=== PATIENT | male | born 1955 | race African-American/Black ===

== ENCOUNTER 2016-12-13 18:08 | Emergency (ER) | payer OTHER, MEDICARE ==
[~2016-12-13] VITALS: Ht 177.8 cm; Wt 104.8 kg
[~2016-12-13 18:08] MED LIST: B-12100T2 OR; ECASA PO; LISI-363 PO; LORTA5 PO; MULTTAB23 PO; SIMV20 PO
[2016-12-13 18:16] VITALS: BP 135/94; PULSE 73; RESP 16; TEMP 98.5; O2SAT 96
[2016-12-13] MEDS ORDERED: ASPI325T PO (18:30)
[2016-12-13] MEDS ORDERED: TETANUS/DIPHTHERIA TOXOID ADULT 0.5 ML VIAL IM ONE (18:30)
[2016-12-13] MEDS ORDERED: prostate med (18:30)
[2016-12-13] MEDS ORDERED: MOBI7.5T PO (18:30)
[2016-12-13] MEDS ORDERED: LISI-515 PO (18:30)
[2016-12-13] MEDS ORDERED: CYAN100016 PO (18:30)
[2016-12-13] MEDS ORDERED: ZOCO20TA PO (18:30)
[2016-12-13] MEDS ORDERED: TYLETAB34 PO (18:30)
[2016-12-13] MEDS ORDERED: AUGM875T PO (18:31)
--- NOTE | 2016-12-13 18:31 | PD ---
HPI Chief Complaint: Bite or Sting Time Seen by Provider: 18:28 Travel History International Travel<30 days: No Contact w/Intl Traveler<30days: No Traveled to known affect area: No History of Present Illness HPI 61-year-old male presents to the emergency department for evaluation of dog bite wound to abdomen that occurred about 2 hours ago. Patient states that he was talking to his neighbor when his neighbor's dog somehow got out of the fence and ran toward him. States he pulled back just as the dog jumped to bite him and it only caused a small bite wound to his right lower abdomen. States his neighbor reported that the dog was uptodate on its rabies vaccination. States the dog was acting normally. He denies any fever, chills, pain. Patient states he needs his tetanus vaccination updated. PFSH Past Medical History Blood Disorders: No Cancer: No Cardiovascular Problems: Yes High Cholesterol: Yes Cerebrovascular Accident: Yes (STROKE 2004; 2 TIA'S 2009) Endocrine: No Glaucoma: Yes Genitourinary: No Hypertension: Yes Immune Disorder: No Musculoskeletal: No Neurologic: Yes (TIA) Psychiatric: No Reproductive: No Respiratory: No Renal Failure: Yes Past Surgical History Other Surgery: Yes Social History Alcohol Use: No Tobacco Use: No Substance Use: No Allergies-Medications (Allergen,Severity, Reaction): Coded Allergies: No Known Allergies (Verified , 12/13/16) Reported Meds & Prescriptions Reported Meds & Active Scripts Active Augmentin (Amoxicillin-Clavulanate) 875-125 mg Tab 875 Mg PO BID 10 Days Reported Mobic (Meloxicam) 7.5 Mg Tab 7.5 Mg PO DAILY [prostate med] Tylenol-Codeine #3 (Acetaminophen-Codeine) 300-30 mg Tab 1-2 Tab PO Q6H PRN Zocor (Simvastatin) 20 Mg Tab 20 Mg PO DAILY Lisinopril 20 Mg Tab 20 Mg PO DAILY B-12 Er (Cyanocobalamin) 1,000 Mcg Tab 1,000 Mcg PO DAILY Aspirin 325 Mg Tab 325 Mg PO DAILY Review of Systems Except as stated in HPI: all other systems reviewed are Neg Physical Exam Narrative GENERAL: Well-nourished and well-developed pleasant patient in no acute distress who is nontoxic appearing. SKIN: Warm and dry. HEAD: Normocephalic and atraumatic. EYES: No injection, drainage, or hyphema noted. PERRLA. EOMI. ENT: No nasal drainage noted. Oropharynx is clear. NECK: Supple and the trachea is midline. CARDIOVASCULAR: Regular rate and rhythm. RESPIRATORY: Breath sounds are equal bilaterally with no accessory muscle use, wheezing, rhonchi, or crackles. GASTROINTESTINAL: 3 abrasions to right lower abdomen with mild swelling. Abdomen is soft, non-tender, and nondistended. MUSCULOSKELETAL: No obvious deformities, swelling, cyanosis, or ecchymosis is present throughout the upper and lower extremities. Patient has full range of motion without any signs of neurovascular compromise. NEUROLOGICAL: Awake, alert, and oriented. Normal speech and gait. Cranial nerves are grossly intact. Data Data Last Documented VS Vital Signs Date Time Temp Pulse Resp B/P Pulse Ox O2 Delivery O2 Flow Rate FiO2 12/13/16 18:16 98.5 73 16 135/94 96 Orders Tetanus/Diphtheria Tox Adult (Tetanus/Di (12/13/16 18:30) MDM Medical Decision Making Medical Screen Exam Complete: Yes Emergency Medical Condition: Yes Differential Diagnosis Dog bite wound versus abrasion versus superficial laceration Narrative Course 61-year-old male presents to the emergency department for evaluation of dog bite wound to the lower abdomen. Patient is afebrile, vital signs are stable. These are minor abrasions, no significant laceration or wound. The dog is a neighbor's dog and is up-to-date on its vaccinations. I discussed the patient that I do not recommend rabies prophylaxis at this time. Tetanus vaccination updated. He'll be started on Augmentin. Instructed to follow-up with his PCP. Patient verbalizes understanding and agreement with treatment plan. Diagnosis Primary Impression: Dog bite Qualified Code: W54.0XXA - Dog bite, initial encounter Referrals: Primary Care Physician Patient Instructions: Animal Bite (ED), General Instructions Additional Instructions: Keep area clean and dry. Take medication as prescribed with food and a full glass of water. Follow-up with your Primary Care Physician. Return to the ED for any acute worsening of symptoms. Med/Other Pt SpecificInfo: Prescription(s) given Scripts Amoxicillin-Clavulanate (Augmentin)875-125 mg Atk639 Mg PO BID 10 Days Ref 0 Prov:Sam Richards MD 12/13/16 Disposition: 01 DISCHARGE HOME Condition: Stable Flower Jasso December 13, 2016 18:31
== END 2016-12-13 18:46 | disposition home or self-care (01) ==
LOC: PHEFT 18:08
DX: S30.811A Abrasion of abdominal wall, initial encounter (principal); Z23 Encounter for immunization; H40.9 Unspecified glaucoma; I10 Essential (primary) hypertension; Z86.73 Personal history of transient ischemic attack (TIA), and cerebral infarction without residual deficits; W54.0XXA Bitten by dog, initial encounter; Y93.89 Activity, other specified; Y92.89 Other specified places as the place of occurrence of the external cause; Y99.9 Unspecified external cause status
CPT/HCPCS: 90471; 90714

== ENCOUNTER 2017-08-02 11:10 | Observation (INO) | payer OTHER, MEDICARE ==
[~2017-08-02] VITALS: Ht 177.8 cm; Wt 105.0 kg
[2017-08-02] VITALS (9 sets, daily range): BP systolic 130–160; BP diastolic 78–95; PULSE 61–78; RESP 15–20; TEMP 95.6–98.1; O2SAT 97–98
[~2017-08-02 11:10] MED LIST changes: +ASPI-183 PO; +AUGM875T PO; -B-12100T2 OR; +CYAN100016 PO; -ECASA PO; -LISI-363 PO; +LISI-515 PO; -LORTA5 PO; +MOBI7.5T PO; -MULTTAB23 PO; -SIMV20 PO; +TYLETAB34 PO; +ZOCO20TA PO; +prostate med
[2017-08-02 12:18] LABS: AUTOMATED NEUTROPHIL # 2.5 TH/MM3 (1.8-7.7); BASOPHIL % 0.6 % (0.0-2.0); EOSINOPHIL # 0.1 TH/MM3 (0-0.4); EOSINOPHIL % 1.4 % (0.0-4.0); HEMATOCRIT 41.4 % (39.0-51.0); HEMOGLOBIN 13.8 GM/DL (13.0-17.0); LYMPH % 27.2 % (9.0-44.0); LYMPHOCYTE # 1.3 TH/MM3 (1.0-4.8); MEAN CELL VOLUME 86.4 FL (80.0-100.0); MEAN CORPUSCULAR HEMOGLOBIN 28.8 PG (27.0-34.0); MEAN CORPUSCULAR HGB CONC 33.3 % (32.0-36.0); MEAN PLATELET VOLUME 8.3 FL (7.0-11.0); MONO % 15.6 % (0.0-8.0); MONOCYTE # 0.7 TH/MM3 (0-0.9); NEUT % 55.2 % (16.0-70.0); PLATELET COUNT 200 TH/MM3 (150-450); RED BLOOD COUNT 4.79 MIL/MM3 (4.50-5.90); WHITE BLOOD COUNT 4.6 TH/MM3 (4.0-11.0)
[2017-08-02 12:28] LABS: INTERNATIONAL NORMALIZED RATIO 1.1 RATIO; PROTHROMBIN TIME - PATIENT 10.8 SEC (9.8-11.6)
[2017-08-02 12:44] LABS: ALBUMIN 3.7 GM/DL (3.4-5.0); ALT (GPT) 41 U/L (12-78); AST (GOT) 26 U/L (15-37); BICARBONATE 28.1 MEQ/L (21.0-32.0); BLOOD UREA NITROGEN 17 MG/DL (7-18); CALCIUM 9.5 MG/DL (8.5-10.1); CHLORIDE 106 MEQ/L (98-107); CREATININE 1.46 MG/DL (0.60-1.30); GLOMERULAR FILTRATION RATE 59 ML/MIN (>89); GLUCOSE,RANDOM 86 MG/DL (74-106); LIPASE 246 U/L (73-393); SODIUM (NA) 139 MEQ/L (136-145)
--- NOTE | 2017-08-02 12:48 | RADRPT ---
EXAM DATE/TIME: 08/02/2017 12:05 [facility] COMPARISON: No previous studies available for comparison. INDICATIONS : Chest pain. MEDICAL HISTORY : Hypertension. Stroke. Renal failure. SURGICAL HISTORY : Rotator cuff repair. ENCOUNTER: Initial ACUITY: 1 day PAIN SCORE: 2/10 LOCATION: chest midline. FINDINGS: A single view of the chest demonstrates the lungs to be symmetrically aerated without evidence of mas s, infiltrate or effusion. Minimal basal atelectasis and scarring The cardiomediastinal contours are unremarkable except tortuous aorta. Osseous structures are intact. CONCLUSION: 1. No consolidation or effusion. Minimal basal atelectasis or scarring. Dusty Barrios MD on August 02, 2017 at 12:46 Board Certified Radiologist. This report was verified electronically.
[2017-08-02 13:04] LABS: ALKALINE PHOSPHATASE 55 U/L (45-117); TOTAL BILIRUBIN ADULT 0.5 MG/DL (0.2-1.0); TROPONIN I 0.02 NG/ML (0.02-0.05)
--- NOTE | 2017-08-02 13:04 | PD ---
HPI Chief Complaint: Cardiac Complaint Time Seen by Provider: 11:39 Travel History International Travel<30 days: No Contact w/Intl Traveler<30days: No Traveled to known affect area: No History of Present Illness HPI 62-year-old male complains of chest pain. Patient states that he has indigestion feeling around the epigastric area with radiation to substernal area 3 days ago. Patient states that he went to his casket upholsterer office this morning and was advised to go the ED for evaluation. Patient was told by his casket upholsterer that he has some EKG changes this morning. Patient states that the chest pain resolved completely after the ride to the emergency room. Patient states the pain is epigastric and substernal pressure. Patient denies any pain radiation. Patient denies palpitation nausea diaphoresis. Patient states that the pain does not change with exertion. Patient has history hypertension and hyperlipidemia. Patient was on simvastatin. Patient states that he ran out of simvastatin a month ago and started back on since yesterday. EMS was called. Patient was given aspirin 162 mg by mouth and nitroglycerin 3 sublingually. PFSH Past Medical History Blood Disorders: No Cancer: No Cardiovascular Problems: Yes High Cholesterol: Yes Cerebrovascular Accident: Yes (STROKE 2004; 2 TIA'S 2009) Endocrine: No Gastrointestinal Disorders: No Glaucoma: Yes Genitourinary: No Hypertension: Yes Immune Disorder: No Implanted Vascular Access Dvce: No Musculoskeletal: No Neurologic: Yes (TIA) Psychiatric: No Reproductive: No Respiratory: No Renal Failure: Yes Past Surgical History Other Surgery: Yes Social History Alcohol Use: No Tobacco Use: No Substance Use: No Allergies-Medications (Allergen,Severity, Reaction): Coded Allergies: No Known Allergies (Verified Adverse Reaction, Unknown, 08/02/17) Reported Meds & Prescriptions Reported Meds & Active Scripts Active Reported Mobic (Meloxicam) 7.5 Mg Tab 7.5 Mg PO DAILY [prostate med] Tylenol-Codeine #3 (Acetaminophen-Codeine) 300-30 mg Tab 1-2 Tab PO Q6H PRN Zocor (Simvastatin) 20 Mg Tab 20 Mg PO DAILY Lisinopril 20 Mg Tab 20 Mg PO DAILY Aspirin 325 Mg Tab 325 Mg PO DAILY Review of Systems General / Constitutional: No: Fever Eyes: No: Visual changes HENT: No: Headaches Cardiovascular: Positive: Chest Pain or Discomfort Respiratory: No: Shortness of Breath Gastrointestinal: No: Abdominal Pain Genitourinary: No: Dysuria Musculoskeletal: No: Pain Skin: No Rash Neurologic: No: Weakness Psychiatric: No: Depression Endocrine: No: Polydipsia Hematologic/Lymphatic: No: Easy Bruising Physical Exam Narrative GENERAL: Well-nourished, well-developed patient. SKIN: Focused skin assessment warm/dry. HEAD: Normocephalic. EYES: No scleral icterus. No injection or drainage. NECK: Supple, trachea midline. No JVD or lymphadenopathy. CARDIOVASCULAR: Regular rate and rhythm without murmurs, gallops, or rubs. RESPIRATORY: Breath sounds equal bilaterally. No accessory muscle use. GASTROINTESTINAL: Abdomen soft, non-tender, nondistended. MUSCULOSKELETAL: No cyanosis, or edema. BACK: Nontender without obvious deformity. No CVA tenderness. Neurologic exam normal. Data Data Last Documented VS Vital Signs Date Time Temp Pulse Resp B/P (MAP) Pulse Ox O2 Delivery O2 Flow Rate FiO2 08/02/17 11:21 70 16 135/86 (102) 97 Orders Orders Complete Blood Count With Diff (08/02/17 11:53) Comprehensive Metabolic Panel (08/02/17 11:53) Creatine Kinase (Cpk) (08/02/17 11:53) Troponin I (08/02/17 11:53) Prothrombin Time / Inr (Pt) (08/02/17 11:53) Act Partial Throm Time (Ptt) (08/02/17 11:53) Lipase (08/02/17 11:53) Chest, Single Ap (08/02/17 11:53) Iv Access Insert/Monitor (08/02/17 11:53) Ecg Monitoring (08/02/17 11:53) Oximetry (08/02/17 11:53) Labs Laboratory Tests Test 08/02/17 11:30 White Blood Count 4.6 TH/MM3 Red Blood Count 4.79 MIL/MM3 Hemoglobin 13.8 GM/DL Hematocrit 41.4 % Mean Corpuscular Volume 86.4 FL Mean Corpuscular Hemoglobin 28.8 PG Mean Corpuscular Hemoglobin Concent 33.3 % Red Cell Distribution Width 16.0 % Platelet Count 200 TH/MM3 Mean Platelet Volume 8.3 FL Neutrophils (%) (Auto) 55.2 % Lymphocytes (%) (Auto) 27.2 % Monocytes (%) (Auto) 15.6 % Eosinophils (%) (Auto) 1.4 % Basophils (%) (Auto) 0.6 % Neutrophils # (Auto) 2.5 TH/MM3 Lymphocytes # (Auto) 1.3 TH/MM3 Monocytes # (Auto) 0.7 TH/MM3 Eosinophils # (Auto) 0.1 TH/MM3 Basophils # (Auto) 0.0 TH/MM3 CBC Comment DIFF FINAL Differential Comment Prothrombin Time 10.8 SEC Prothromb Time International Ratio 1.1 RATIO Activated Partial Thromboplast Time 27.6 SEC Blood Urea Nitrogen 17 MG/DL Creatinine 1.46 MG/DL Random Glucose 86 MG/DL Albumin 3.7 GM/DL Calcium Level 9.5 MG/DL Aspartate Amino Transf (AST/SGOT) 26 U/L Alanine Aminotransferase (ALT/SGPT) 41 U/L Sodium Level 139 MEQ/L Potassium Level 4.6 MEQ/L Chloride Level 106 MEQ/L Carbon Dioxide Level 28.1 MEQ/L Anion Gap 5 MEQ/L Estimat Glomerular Filtration Rate 59 ML/MIN Lipase 246 U/L [facility] Medical Decision Making Medical Screen Exam Complete: Yes Emergency Medical Condition: Yes Interpretation(s) EKG shows sinus rhythm nonspecific ST-T wave changes. Unchanged and previous EKG. Differential Diagnosis Differential diagnosis including GI symptoms, angina, MN, PE, pneumothorax. Narrative Course 62-year-old male with epigastric and substernal chest pain. Gerardo Abdi MD Aug 02, 2017 13:04
[2017-08-02] MEDS ORDERED: ACETAMINOPHEN 500 MG CPLT PO PRN (13:15)
[2017-08-02] MEDS ORDERED: SODIUM CHLORIDE 0.9% FLUSH 10 ML FLUSH IV FLUSH PRN (13:15)
[2017-08-02] MEDS ORDERED: NITROGLYCERIN 0.4 MG SL 25 TABS/BTL SL PRN (13:15)
[2017-08-02] MEDS ORDERED: ONDANSETRON HCL 4 MG/2 ML VIAL IV PUSH PRN (13:15)
--- NOTE | 2017-08-02 14:48 | HHI.HP ---
HPI Primary Care Physician Dat Cassidy DO Chief Complaint Chest pain History of Present Illness 62-year-old male with history of hypertension, hyperlipidemia, and CVA presents to emergency room for further evaluation of chest pain. Onset Sunday. Location substernal. Characterized as ingestion. Severity mild. Developed radiation discomfort moving up chest yesterday. Duration 4 days, waxing and waning in intensity. No associated symptoms of nausea, vomiting, dyspnea, or diaphoresis. Taking a deep breath or bending over and noticed the pain more, not necessarily intensify pain. No known precipitating or relieving factors. Currently his chest pain-free. Denies similar pain in the past. No recent illness, fevers, or chills. No recent Viral illness within the past 6 weeks. Laying flat or sitting straight up does not make pain better or worse. Seen his PCP, Dr. Cassidy, today for persistent discomfort. While at office an EKG was completed and PCP noted changed from previous EKG, therefore, PCP recommended ER evaluation. Patient transported via [facility]. Review of Systems General: No fatigue,weakness, fever, chills, or recent illness change in appetite. Has been adjusted health. HEENT: No PERSON, no vision changes, no nasal congestion or drainage, no dysphasia CV: As stated above. No current chest pain, discomfort, or pressure. No palpitations, intermittent leg pain, dizziness RESP: No SOB, cough, wheeze, or recent respiratory illness. GI: No nausea, vomiting, bowel changes, diarrhea, constipation, pain, or distention. No unintentional weight gain or weight loss. : No dysuria, urgency, frequency EXT: No lower leg edema, no paraesthesias MS: No discomfort or change in ROM, history of a "bad right knee." NEURO: No difficulty with balance, LOC, motor/sensory deficits PSYCH: No anxiety, depression SKIN: No rashes, no concerning lesions Past Family Social History Allergies: Coded Allergies: No Known Allergies (Verified Allergy, Unknown, 08/02/17) Past Medical History Hyperlipidemia, hypertension, and a hernia, CVA (2008), TIA x2 (2009), glaucoma Past Surgical History Left shoulder surgery Reported Medications Reported Meds & Active Scripts Active Reported Zocor (Simvastatin) 20 Mg Tab 20 Mg PO DAILY Lisinopril 20 Mg Tab 20 Mg PO DAILY Aspirin 325 Mg Tab 325 Mg PO DAILY Active Ordered Medications Current Medications Medications (Trade) Dose Ordered Sig/Waqar Route Start Time Stop Time Status Last Admin (NS Flush) 2 ml UNSCH PRN IV FLUSH 08/02/17 13:15 (NS Flush) 2 ml BID IV FLUSH 08/02/17 21:00 (Tylenol) 500 mg Q4H PRN PO 08/02/17 13:15 (Zofran Inj) 4 mg Q6H PRN IV PUSH 08/02/17 13:15 (Nitrostat Sl) 0.4 mg Q5M PRN SL 08/02/17 13:15 Family History Father age 46 from myocardial infarction. Mother in mid 80s from Alzheimer's disease. Does not have any siblings. Social History Known hypertension and hyperlipidemia. No known diabetes. Lifelong nonsmoker. Denies any alcohol use. Endorses an active lifestyle. . Works out a gym fairly regular. Past cardiac testing Nuclear stress test 3 years ago reported to be unremarkable. Never required a cardiac catheterization. Physical Exam Vital Signs Vital Signs Date Time Temp Pulse Resp B/P (MAP) Pulse Ox O2 Delivery O2 Flow Rate FiO2 08/02/17 11:21 70 16 135/86 (102) 97 Physical Exam GENERAL: Alert WN, WD, NAD, pleasant, male HEAD: NC, AT EYES: Sclera clear, conjunctiva without injection, pupils equal and round ENT: Mucous membranes pink and moist NECK: Supple, no masses, trachea midline CV: RRR, without murmur, rub, gallop, no JVD, S1-S2 no S3-S4. No carotid or femoral bruits. Chest wall nontender with palpation. RESP: Clear lungs throughout bilateral, no crackles, wheeze, rhonchi, symmetrical chest rise, nonlabored, able to speak in full sentences ABD: Soft, NT, ND, no masses, positive bowel tones EXT: Pulses +24, no dependent edema MS: Normal tone 4 extremities, nontender, no obvious deformities, full range of motion NEURO: CN II through CN XII grossly intact, motor strength 5/5 PSYCH: A+O 3, pleasant affect, appropriate speech, mood, insight and judgment SKIN: Normal turgor, normal texture, no lesions, no rashes, brisk cap refill, even hair distribution Laboratory Laboratory Tests Test 08/02/17 11:30 White Blood Count 4.6 Red Blood Count 4.79 Hemoglobin 13.8 Hematocrit 41.4 Mean Corpuscular Volume 86.4 Mean Corpuscular Hemoglobin 28.8 Mean Corpuscular Hemoglobin Concent 33.3 Red Cell Distribution Width 16.0 Platelet Count 200 Mean Platelet Volume 8.3 Neutrophils (%) (Auto) 55.2 Lymphocytes (%) (Auto) 27.2 Monocytes (%) (Auto) 15.6 Eosinophils (%) (Auto) 1.4 Basophils (%) (Auto) 0.6 Neutrophils # (Auto) 2.5 Lymphocytes # (Auto) 1.3 Monocytes # (Auto) 0.7 Eosinophils # (Auto) 0.1 Basophils # (Auto) 0.0 CBC Comment DIFF FINAL Differential Comment Prothrombin Time 10.8 Prothromb Time International Ratio 1.1 Activated Partial Thromboplast Time 27.6 Blood Urea Nitrogen 17 Creatinine 1.46 Random Glucose 86 Total Protein 7.0 Albumin 3.7 Calcium Level 9.5 Alkaline Phosphatase 55 Aspartate Amino Transf (AST/SGOT) 26 Alanine Aminotransferase (ALT/SGPT) 41 Total Bilirubin 0.5 Sodium Level 139 Potassium Level 4.6 Chloride Level 106 Carbon Dioxide Level 28.1 Anion Gap 5 Estimat Glomerular Filtration Rate 59 Total Creatine Kinase 326 Creatine Kinase MB 3.6 Creatine Kinase MB % 1.1 Troponin I 0.02 Lipase 246 Result Diagram: 08/02/17 1130 08/02/17 1130 Imaging Last Impressions Chest X-Ray 08/02/17 1153 Signed Impressions: Service Date/Time: July 12:05 - CONCLUSION: 1. No consolidation or effusion. Minimal basal atelectasis or scarring. Dusty Barrios MD Course EKG Normal sinus rhythm, normal axis, ST elevation most likely early repolarization Caprini VTE Risk Assessment Caprini VTE Risk Assessment: Mod/High Risk (score >= 2) Caprini Risk Assessment Model Point Value = 1 Point Value = 2 Point Value = 3 Point Value = 5 Age 41-60 Minor surgery BMI > 25 kg/m2 Swollen legs Varicose veins or History of unexplained or recurrent spontaneous Oral contraceptives or hormone replacement Sepsis (< 1 month) Serious lung disease, including pneumonia (< 1 month) Abnormal pulmonary function Acute myocardial infarction Congestive heart failure (< 1 month) History of inflammatory bowel disease Medical patient at bed rest Age 61-74 Arthroscopic surgery Major open surgery (> 45 min) Laparoscopic surgery (> 45 min) Malignancy Confined to bed (> 72 hours) Immobilizing plaster cast Central venous access Age >= 75 History of VTE Family history of VTE Factor V Leiden Prothrombin [id number] Lupus anticoagulant Anticardiolipin antibodies Elevated serum homocysteine Heparin-induced thrombocytopenia Other congenital or acquired thrombophilia Stroke (< 1 month) Elective arthroplasty Hip, pelvis, or leg fracture Acute spinal cord injury (< 1 month) Prophylaxis Regimen Total Risk Factor Score Risk Level Prophylaxis Regimen 0-1 Low Early ambulation 2 Moderate Order ONE of the following: *Sequential Compression Device (SCD) *Heparin 5000 units SQ BID 3-4 Higher Order ONE of the following medications: *Heparin 5000 units SQ TID *Enoxaparin/Lovenox 40 mg SQ daily (WT < 150 kg, CrCl > 30 mL/min) *Enoxaparin/Lovenox 30 mg SQ daily (WT < 150 kg, CrCl > 10-29 mL/min) *Enoxaparin/Lovenox 30 mg SQ BID (WT < 150 kg, CrCl > 30 mL/min) AND/OR *Sequential Compression Device (SCD) 5 or more Highest Order ONE of the following medications: *Heparin 5000 units SQ TID (Preferred with Epidurals) *Enoxaparin/Lovenox 40 mg SQ daily (WT < 150 kg, CrCl > 30 mL/min) *Enoxaparin/Lovenox 30 mg SQ daily (WT < 150 kg, CrCl > 10-29 mL/min) *Enoxaparin/Lovenox 30 mg SQ BID (WT < 150 kg, CrCl > 30 mL/min) AND *Sequential Compression Device (SCD) Assessment and Plan Assessment and Plan #1 Atypical chest pain-admitted chest pain center. Rule out with 3 sets of EKGs , cardiac enzymes, and monitored overnight. Seen and evaluated by Dr. Alistair Gr. If ruled out plan to complete an exercise stress test in a.m. Early repolarization noted on other past EKGs, but not all previous EKGs. Pericarditis unlikely, no rub found on physical exam and patient does not report symptoms to suggest pericarditis. Currently chest pain free. Discussed plan of care in length with patient and his family. Patient agreeable to plan of care. #2 Hypertension-continue lisinopril #3 Hyperlipidemia-continue simvastatin Myesha Marc Aug 02, 2017 14:48
[2017-08-02 15:54] LABS: TROPONIN I 0.02 NG/ML (0.02-0.05)
[2017-08-02 18:19] LABS: TROPONIN I 0.02 NG/ML (0.02-0.05)
[2017-08-02] MEDS: SODIUM CHLORIDE 0.9% FLUSH 10 ML FLUSH IV FLUSH SCH (21:50)
[2017-08-03] VITALS (8 sets, daily range): BP systolic 107–170; BP diastolic 69–97; PULSE 62–86; RESP 17–20; TEMP 97.5–98; O2SAT 95–100
[2017-08-03] MEDS ORDERED: PRAVASTATIN SOD 40 MG TAB PO SCH (09:00)
[2017-08-03] MEDS ORDERED: ASPIRIN 325 MG TAB PO SCH (09:00)
[2017-08-03] MEDS ORDERED: LISINOPRIL 20 MG TAB PO SCH (09:00)
--- NOTE | 2017-08-03 09:41 | HHI.DCPOC ---
Discharge Care Plan Diagnosis: (1) Chest pain, atypical (2) Hypertension (3) Hyperlipidemia Goals to Promote Your Health * To prevent worsening of your condition and complications * To maintain your health at the optimal level Directions to Meet Your Goals Take your medications as prescribed Follow your dietary instruction Follow activity as directed Keep your appointments as scheduled Take your immunizations and boosters as scheduled If your symptoms worsen call your PCP, if no PCP go to Urgent Care Center or Emergency Room Smoking is Dangerous to Your Health. Avoid second hand smoke Call the 24-hour hour crisis hotline for domestic abuse at Americ[facility] Pearl Aug 03, 2017 09:41
[2017-08-03] MEDS: SODIUM CHLORIDE 0.9% FLUSH 10 ML FLUSH IV FLUSH SCH (09:50)
--- NOTE | 2017-08-03 14:21 | EKG ---
Date Performed: 08/02/2017 Time Performed: 21:18:52 PTAGE: 62 years EKG: Sinus rhythm MODERATE INTRAVENTRICULAR CONDUCTION DELAY ST ELEVATION CONSISTENT WITH INJURY, PERICARDITIS, OR EAR LY REPOLARIZATION NONSPECIFIC ST & T-WAVE ABNORMALITY ABNORMAL ECG PREVIOUS TRACING : 08/02/2017 18.06 Since previous tracing, no significant change noted DOCTOR: Roberto Pitts Interpretating Date/Time 08/03/2017 14:20:08
--- NOTE | 2017-08-03 14:22 | EKG ---
Date Performed: 08/02/2017 Time Performed: 18:06:55 PTAGE: 62 years EKG: Sinus rhythm MODERATE INTRAVENTRICULAR CONDUCTION DELAY ST ELEVATION CONSISTENT WITH INJURY, PERICARDITIS, OR EAR LY REPOLARIZATION NONSPECIFIC ST & T-WAVE ABNORMALITY ABNORMAL ECG NO PREVIOUS TRACING DOCTOR: Roberto Pitts Interpretating Date/Time 08/03/2017 14:20:16
--- NOTE | 2017-08-03 14:23 | EKG ---
Date Performed: 08/02/2017 Time Performed: 11:33:03 PTAGE: 62 years EKG: Sinus rhythm EARLY REPOLARIZATION BORDERLINE ECG NO PREVIOUS TRACING DOCTOR: Roberto Pitts Interpretating Date/Time 08/03/2017 14:21:34
--- NOTE | 2017-08-03 14:26 | TR ---
Date Performed: 08/03/2017 Time Performed: 08:52:08 DOCTOR: Roberto Pitts DRUG LIST: CLINICAL HISTORY: CHEST PAIN REASON FOR TEST: REASON FOR ENDING: OBSERVATION: CONCLUSION: GARRICK PROTOCOL. NO CP. TEST STOPPED AFTER EXCEEDING GOAL HR SECONDARY TO SOB AND LEG FATIGUE.Maximum PD=362 % Max HR Achieved=97.0% Maximum DQ=769/78 Total Exercise Time=10:00 COMMENTS: Patient exercised using the Garrick protocol. No electrocardiographic changes were seen to suggest ischemia. Hemodynamic response to exercise was normal. No significant arrhythmia was prese nt.
== END 2017-08-03 13:00 | disposition home or self-care (01) ==
LOC: NEPC 11:10 → NEDA 13:12 → NEPHCDU 15:44
DX: R07.89 Other chest pain (principal); I10 Essential (primary) hypertension; E78.5 Hyperlipidemia, unspecified; N19 Unspecified kidney failure; R94.31 Abnormal electrocardiogram [ECG] [EKG]; E78.00 Pure hypercholesterolemia, unspecified; H40.9 Unspecified glaucoma; Z86.73 Personal history of transient ischemic attack (TIA), and cerebral infarction without residual deficits
CPT/HCPCS: 71010; 80053; 82550; 82552; 83690; 84484; 85025; 85610; 85730; 93005; 93017; 99285; G0378